=== PATIENT | male | born 1985 | race African-American/Black ===

== ENCOUNTER 2022-11-28 19:26 | Emergency (ER) | payer OTHER ==
[2022-11-28 19:37] VITALS: BP 112/62; PULSE 79; RESP 18; TEMP 98.6; BMI 29.7
== END 2022-11-28 20:47 | disposition home or self-care (01) ==
LOC: JERFT 19:26 → JER 19:26 → JERFT 20:47
DX: S67.21XA Crushing injury of right hand, initial encounter (principal); M79.641 Pain in right hand; R22.31 Localized swelling, mass and lump, right upper limb; W23.0XXA Caught, crushed, jammed, or pinched between moving objects, initial encounter
CPT/HCPCS: 73130-TC-RT-FY; 99283-25

== ENCOUNTER 2022-12-05 19:31 | Emergency (ER) | payer OTHER ==
[2022-12-05 19:35] VITALS: BP 126/79; PULSE 66; RESP 18; TEMP 98.6; BMI 29.7
== END 2022-12-05 21:05 | disposition home or self-care (01) ==
LOC: JERFT 19:31 → JER 19:31 → JERFT 21:05
DX: M79.641 Pain in right hand (principal); S60.221A Contusion of right hand, initial encounter; R22.31 Localized swelling, mass and lump, right upper limb; X58.XXXA Exposure to other specified factors, initial encounter
CPT/HCPCS: 73130-TC-RT-FY; 99283-25